=== PATIENT | male | born 1955 | race Caucasian/White ===

== ENCOUNTER 2020-01-07 09:56 | Day surgery (SDC) | payer MEDICARE ==
[2020-01-07] VITALS (14 sets, daily range): BP systolic 101–146; BP diastolic 72–92
[~2020-01-07] VITALS: Ht 177.8 cm; Wt 94.9 kg
[2020-01-07] MEDS ORDERED: cefazolin/dext.iso 2gm/50ml 50 ML IV ONE (10:17)
[2020-01-07] MEDS ORDERED: ringers solution, lacted 1,000 ML IV SCH ×2 (10:31→13:17)
[2020-01-07] MEDS ORDERED: famotidine 20mg tablet PO ONE (10:31)
[2020-01-07 11:22] LABS: BASOPHILS % (AUTO) 0.6 % (0-1); EOSINOPHILS # (AUTO) 0.2 X10'3 (0-0.9); EOSINOPHILS % (AUTO) 2.7 % (0-6); LYMPHOCYTES # (AUTO) 1.9 X10'3 (1.1-4.8); LYMPHOCYTES % (AUTO) 27.4 % (21-51); MEAN CORPUSCULAR HGB CONC 33.4 g/dL (33.0-36.5); MEAN CORPUSCULAR VOLUME 95.9 FL (78-98); MEAN PLATELET VOLUME 9.6 FL (7.4-10.4); MONOCYTES # (AUTO) 0.6 X10'3 (0-0.9); MONOCYTES % (AUTO) 8.1 % (2-12); NEUTROPHILS # (AUTO) 4.2 X10'3 (1.8-7.7); NEUTROPHILS % (AUTO) 61.2 % (42-75); PRE OP HEMATOCRIT 50.9 % (42.0-52.0); PRE OP PLATELET COUNT 162 X10'3 (140-440); RED BLOOD COUNT 5.31 X10'6 (4.70-6.10); RED CELL DISTRIBUTION WIDTH 12.8 % (11.5-14.5)
[2020-01-07] MEDS ORDERED: IBUP-1984 PO (11:30)
[2020-01-07 11:37] LABS: ALBUMIN 3.9 G/DL (3.4-5.0); ALBUMIN/GLOBULIN RATIO 1.1 (1.1-1.5); ALKALINE PHOSPHATASE 63 IU/L (46-116); BLOOD UREA NITROGEN 22 MG/DL (7-18); BUN/CREATININE RATIO 21.2 (5.4-32.0); CHLORIDE 104 MMOL/L (99-107); CREATININE 1.04 MG/DL (0.60-1.10); PRE OP ALT 36 U/L (30-65); PRE OP ANION GAP 11 (8-16); PRE OP AST 20 U/L (10-37); PRE OP BILIRUB, TOTAL 0.7 MG/DL (0.0-1.0); PRE OP GLUCOSE 106 MG/DL (70-104); PRE OP SODIUM 140 MMOL/L (135-145); TOTAL CARBON DIOXIDE 25.1 MMOL/L (24-32); TOTAL PROTEIN 7.5 G/DL (6.4-8.2); eGFR 72 ML/MIN
[2020-01-07] MEDS ORDERED: BUPIVAcaine/PF 2.5 mg/ml (0.25%) 30ml vial ONE (12:41)
[2020-01-07] MEDS ORDERED: ceFAZolin 1000mg inj ONE (12:41)
[2020-01-07] MEDS ORDERED: propofol inj 20 ML IV ONE (13:00)
[2020-01-07] MEDS ORDERED: rocuronium 10mg/ml inj IV ONE (13:00)
[2020-01-07] MEDS ORDERED: midazolam 2 mg/2 ml injection ONE (13:00)
[2020-01-07] MEDS ORDERED: fentaNYL/PF 50MCG/1 ML 2ML syringe ONE (13:00)
[2020-01-07] MEDS ORDERED: sevoflurane 250ml liquid IH ONE (13:07)
[2020-01-07] MEDS ORDERED: proCHLORperazine 10 MG/2 ml inj IV PRN (13:20)
[2020-01-07] MEDS ORDERED: morphine 4 MG/ML inj SYRINge IV PRN (13:20)
[2020-01-07] MEDS ORDERED: meperidine/PF 25mg/ml syringe IV PRN ×3 (13:20)
[2020-01-07] MEDS ORDERED: morphine 2 MG/ML inj. syringe IV PRN (13:20)
[2020-01-07] MEDS ORDERED: ondansetron/PF 4mg/2ml inj IV PRN (13:20)
[2020-01-07] MEDS ORDERED: ondansetron/PF 4mg/2ml inj ONE (13:26)
[2020-01-07] MEDS ORDERED: dexamethasone sod phosphate 4mg/ml inj. ONE (13:26)
[2020-01-07] MEDS ORDERED: glycopyrrolate 0.2mg/ml inj ONE (13:43)
[2020-01-07] MEDS ORDERED: neostigmine methylsulfate 1 MG/ML 10ml vial ONE (13:43)
--- NOTE | 2020-01-07 14:04 | NUR ---
Received from OR via [facility] , accompanied by Anesthesiologist MICHEL and report given by Anesthesiolgist. PATIENT WITH 20G PIV IN LEFT UE RUNNING LR AT 100. 2 LAP SITES TO ABDOMEN THAT ARE CDI. VSS. DENIES PAIN AT THIS TIME Addendum: 01/07/20 at 1432 by Trevor Bell RN, RN Amended: Links added.
[2020-01-07] MEDS ORDERED: acetaminophen 325mg tablet PO PRN (15:15)
--- NOTE | 2020-01-07 16:54 | NUR ---
I HAVE REVIEWED D/C INSTRUCTIONS WITH PATIENT AND FAMILY AND THEY HAVE VERBALIZED UNDERSTANDING. PATIENT D/C HOME WITH ALL BELONGINGS AND FAMILY GAVE TRANSPORT HOME.PATIENT AMBULATE AND VOIDED. PAIN AT A TOLERABLE LEVEL AT THIS TIME. VSS. Addendum: 01/07/20 at 1655 by Trevor Bell RN, RN Amended: Links added.
== END 2020-01-07 16:54 | disposition home or self-care (01) ==
LOC: PAS 09:56
PROVIDERS: ATTEND Surgery
DX: K40.30 Unilateral inguinal hernia, with obstruction, without gangrene, not specified as recurrent (principal); K41.90 Unilateral femoral hernia, without obstruction or gangrene, not specified as recurrent; D17.6 Benign lipomatous neoplasm of spermatic cord; E66.9 Obesity, unspecified; Z68.30 Body mass index [BMI] 30.0-30.9, adult; F17.210 Nicotine dependence, cigarettes, uncomplicated; Z72.89 Other problems related to lifestyle; Z88.5 Allergy status to narcotic agent; Z98.890 Other specified postprocedural states; Z79.899 Other long term (current) drug therapy
CPT/HCPCS: 36415; 49650; 80053; 82948; 85025; 93005; C1781; J0690; J1100; J2250; J2405; J2704; J2710; J3010; J3490; J7120; A4215; A4314; A4618